=== PATIENT | female | born 1985 ===

== ENCOUNTER 2019-03-06 09:54 | Outpatient (CLI) | payer OTHER | END 2019-03-06 10:05 | disposition home or self-care (01) | LOC: RX STUDY 09:54 | DX: N93.0 Postcoital and contact bleeding (principal) ==

== ENCOUNTER 2021-04-24 09:25 | Outpatient (CLI) | payer OTHER | END 2021-04-24 09:36 | disposition home or self-care (01) | LOC: RX STUDY 09:25 | PROVIDERS: ATTEND Specialist | DX: Q51.818 Other congenital malformations of uterus (principal) ==

== ENCOUNTER 2022-10-25 15:45 | Inpatient (IN) | payer OTHER ==
[~2022-10-25] VITALS: Ht 157.5 cm; Wt 73.5 kg
[2022-10-27] MEDS ORDERED: SYNTHROID50 MCG PO (09:08)
[2022-10-27] MEDS ORDERED: PRENATAL TABLE1 EAC1 PO (09:12)
[2022-10-27] MEDS ORDERED: IRON325 MG PO (09:13)
[2022-10-27] MEDS ORDERED: ADULT LOW DOSE81 M1 PO (09:13)
== END 2022-10-29 12:26 | disposition home or self-care (01) | DRG 807 ==
LOC: LDR 10-27 06:48 → OB/GYN 10-27 14:12
PROVIDERS: ADMIT Obstetrics & Gynecology; ATTEND Obstetrics & Gynecology
PROC: 10E0XZZ Delivery of Products of Conception, External Approach (ICD-10-PCS; principal; 2022-10-27)
PROC: 0HQ9XZZ Repair Perineum Skin, External Approach (ICD-10-PCS; 2022-10-27)
PROC: 4A1HXCZ Monitoring of Products of Conception, Cardiac Rate, External Approach (ICD-10-PCS; 2022-10-27)
DX: O70.0 First degree perineal laceration during delivery (principal); Z37.0 Single live birth; Z3A.39 39 weeks gestation of pregnancy; Z20.822 Contact with and (suspected) exposure to COVID-19